=== PATIENT | female | born 1960 | race Caucasian/White ===

== ENCOUNTER → 2020-07-06 | Outpatient (CLI) | payer OTHER ==
[~2020-07-06] MED LIST: ACYC-114 PO; CALC1CAP8 PO; CELE200C PO; MONT10TA11 PO; PRAV40TA2 PO; PROP60CA36 PO; VITA1TAB38 PO; ZOLP10TA PO
== END | disposition home or self-care (01) ==
LOC: STAR 10:08
PROVIDERS: ATTEND Anesthesiology
DX: Z20.828 Contact with and (suspected) exposure to other viral communicable diseases (principal)
CPT/HCPCS: 36415; 87635

== ENCOUNTER 2020-07-11 08:40 | Day surgery (SDC) | payer OTHER ==
[~2020-07-11] VITALS: Ht 162.6 cm; Wt 50.7 kg
[~2020-07-11 08:40] MED LIST changes: +LIDOCAINE 2%, 20ML ONE; +LIDOCAINE GEL 2%, 5ML ONE
[2020-07-11 09:21] VITALS: BP 117/81
[2020-07-11] MEDS ORDERED: PLEASE ENTER HEIGHT AND WEIGHT MC SCH (09:30)
[2020-07-11] MEDS ORDERED: SODIUM CHLORIDE 0.9% 1,000 ML IV SCH (09:30)
[2020-07-11] MEDS ORDERED: ETHA400T PO (09:56)
[2020-07-11] MEDS ORDERED: RIFA300C3 PO (09:56)
[2020-07-11] MEDS ORDERED: CLAR-14 PO (09:56)
[2020-07-11] MEDS ORDERED: FENTANYL PF 100 MCG/2ML ONE (09:57)
[2020-07-11] MEDS ORDERED: MIDAZOLAM 1 MG/ML, 5ML ONE (09:57)
[2020-07-11 09:59] LABS: BASOPHILS # (AUTO) 0.03 x10^3/uL (0-0.1); BASOPHILS % (AUTO) 1 % (0-1); EOSINOPHILS # (AUTO) 0.22 x10^3/uL (0-0.4); EOSINOPHILS % (AUTO) 5 % (1-7); LYMPHOCYTES # (AUTO) 1.53 x10^3/uL (1-3.4); LYMPHOCYTES % (AUTO) 33 % (22-44); MD NO; MEAN CORPUSCULAR HGB CONC 32.5 g/dL (32.4-35.8); MEAN CORPUSCULAR VOLUME 95.4 fL (80-100); MEAN PLATELET VOLUME 7.6 fL (7.4-10.4); MONOCYTES # (AUTO) 0.47 x10^3/uL (0.2-0.8); MONOCYTES % (AUTO) 10 % (2-9); NEUTROPHILS # (AUTO) 2.43 x10^3/uL (1.8-6.8); NEUTROPHILS % (AUTO) 52 % (42-75); PLATELET COUNT 293 x10^3/uL (130-400); RED BLOOD COUNT 4.67 x10^6/uL (3.82-5.3); RED CELL DISTRIBUTION WIDTH 12.9 % (9.6-15.2)
[2020-07-11 10:06] LABS: INTERNATIONAL NORMALIZED RATIO 1.04 (0.93-1.1); PROTHROMBIN TIME 10.7 Seconds (9.6-11.5)
== END 2020-07-11 13:00 | disposition home or self-care (01) ==
LOC: OUT 08:40
PROVIDERS: ATTEND Internal Medicine
DX: A31.0 Pulmonary mycobacterial infection (principal); J15.1 Pneumonia due to Pseudomonas; J47.9 Bronchiectasis, uncomplicated; Z79.01 Long term (current) use of anticoagulants; Z79.1 Long term (current) use of non-steroidal anti-inflammatories (NSAID); Z79.899 Other long term (current) drug therapy; Z88.6 Allergy status to analgesic agent; Z88.8 Allergy status to other drugs, medicaments and biological substances
CPT/HCPCS: 31624; 36415; 85025; 85610; 85730; 87015; 87070; 87102; 87116; 87205; 87206; 99152; 99153; J2250; J3010

== ENCOUNTER 2021-07-18 10:16 | Outpatient (CLI) | payer OTHER ==
[~2021-07-18 10:16] MED LIST changes: -ACYC-114 PO; +ACYC-40 PO; +CLAR-14 PO; -LIDOCAINE 2%, 20ML ONE; -LIDOCAINE GEL 2%, 5ML ONE; -MONT10TA11 PO; +MONT10TA17 PO; +RIFA300C3 PO; +[UNRECOGNIZED DRUG - CODE] PO
[2021-07-18 11:11] LABS: BASOPHILS % (AUTO) 1 % (0-1); EOSINOPHILS % (AUTO) 3 % (1-7); LYMPHOCYTES % (AUTO) 30 % (22-44); MEAN CORPUSCULAR HEMOGLOBIN 32.2 pg (27.0-34.8); MEAN CORPUSCULAR HGB CONC 33.9 g/dL (32.4-35.8); MEAN PLATELET VOLUME 7.1 fL (7.4-10.4); MONOCYTES % (AUTO) 11 % (2-9); NEUTROPHILS % (AUTO) 55 % (42-75); PLATELET COUNT 349 x10^3/uL (130-400); RED BLOOD COUNT 4.42 x10^6/uL (3.82-5.3); RED CELL DISTRIBUTION WIDTH 12.7 % (9.6-15.2)
[2021-07-18 11:19] LABS: INTERNATIONAL NORMALIZED RATIO 1.01 (0.93-1.1); PROTHROMBIN TIME 10.8 Seconds (9.6-11.5)
[2021-07-18] MEDS ORDERED: ETHA400T17 PO (15:13)
== END 2021-07-18 23:59 | disposition home or self-care (01) ==
LOC: STAR 10:16
PROVIDERS: ATTEND Internal Medicine
DX: Z01.818 Encounter for other preprocedural examination (principal); A31.0 Pulmonary mycobacterial infection; J47.9 Bronchiectasis, uncomplicated
CPT/HCPCS: 36415; 85025; 85610; 85730

== ENCOUNTER 2021-07-26 06:00 | Day surgery (SDC) | payer OTHER ==
[~2021-07-26] VITALS: Ht 162.6 cm; Wt 51.0 kg
[2021-07-26 06:47] VITALS: BP 100/70
== END 2021-07-26 10:20 | disposition home or self-care (01) ==
LOC: OUT 06:00
PROVIDERS: ATTEND Internal Medicine
DX: R91.8 Other nonspecific abnormal finding of lung field (principal); J18.9 Pneumonia, unspecified organism; Z20.822 Contact with and (suspected) exposure to COVID-19; Z79.899 Other long term (current) drug therapy; Z88.8 Allergy status to other drugs, medicaments and biological substances
CPT/HCPCS: 31624; 87015; 87070; 87077; 87102; 87107; 87116; 87186; 87205; 87206; 87635; 88112; 88305; 99151; 99152; J2250; J3010; J7120